=== PATIENT | female | born 1970 | race Caucasian/White ===

== ENCOUNTER → 2020-09-06 | Outpatient (CLI) | payer BC, OTHER ==
[~2020-09-06] MED LIST: DULOXETINE HCL60 MG PO; ESTRADIOL1 EACH TD; LEVOTHYROXINE112 MCG PO; LOSARTAN POTAS100 MG PO; NAPROSYN500 MG PO; PREGABALIN100 MG PO; TRAMADOL HCL50 MG PO
[2020-09-06 09:51] LABS: RED BLOOD COUNT 5.08 M/UL (4.00-5.10); WHITE BLOOD COUNT 7.2 K/UL (4.5-11.0)
[2020-09-06 10:42] LABS: BUN/CREATININE RATIO 13 (0-10)
== END ==
LOC: OPSV2 08-23 08:00
PROVIDERS: Orthopaedic Surgery
DX: G56.01 Carpal tunnel syndrome, right upper limb (principal); Z01.818 Encounter for other preprocedural examination
CPT/HCPCS: 36415; 80048; 85025; 93005

== ENCOUNTER → 2020-10-11 | Day surgery (SDC) | payer BC, OTHER ==
[~2020-10-11] VITALS: Ht 172.7 cm; Wt 129.3 kg
[2020-10-11 06:59] LABS: HEMOGLOBIN 16.3 gm/dl (12.3-15.3); RED BLOOD COUNT 5.18 M/UL (4.00-5.10); WHITE BLOOD COUNT 8.3 K/UL (4.5-11.0)
[2020-10-11 07:15] LABS: BUN/CREATININE RATIO 23 (0-10)
== END | disposition home or self-care (01) ==
LOC: OR 06:27
PROVIDERS: Orthopaedic Surgery
DX: G56.03 Carpal tunnel syndrome, bilateral upper limbs (principal); I10 Essential (primary) hypertension; M79.7 Fibromyalgia; I38 Endocarditis, valve unspecified; J18.9 Pneumonia, unspecified organism; K27.9 Peptic ulcer, site unspecified, unspecified as acute or chronic, without hemorrhage or perforation; K44.9 Diaphragmatic hernia without obstruction or gangrene; E03.9 Hypothyroidism, unspecified; R56.9 Unspecified convulsions; Z90.49 Acquired absence of other specified parts of digestive tract; Z79.899 Other long term (current) drug therapy
CPT/HCPCS: 36415; 71045; 80048; 85025; 93005; J0690; J1100; J2250; J2405; J2704; J3010; J7120